=== PATIENT | male | born 1985 | race Caucasian/White ===

== ENCOUNTER 2016-07-14 20:37 | Emergency (ER) | payer OTHER ==
[~2016-07-14 20:37] MED LIST: BACTRIM DS TABL1 TAB PO; NO MEDS; NORCO 5/325 TAB1 TAB PO
[2016-07-14] MEDS ORDERED: NO HOME MEDICATION XX (21:10)
[2016-07-14 21:14] LABS: URINE BILIRUBIN NEGATIVE (NEG); URINE BLOOD LARGE (NEG); URINE GLUCOSE (UA) NEGATIVE (NEG); URINE KETONE NEGATIVE (NEG); URINE LEUKOCYTE ESTERASE POSITIVE (NEG); URINE NITRITE NEGATIVE (NEG); URINE PROTEIN SMALL (NEG); URINE SPECIFIC GRAVITY 1.005 (1.003-1.030)
[2016-07-14 21:16] LABS: URINE APPEARANCE HAZY; URINE COLOR PALE YELLOW
[2016-07-14 21:31] LABS: URINE RBC 200-250 /[HPF] (0-5)
[2016-07-14 21:32] LABS: URINE EPITHELIAL CELLS 0-1 /[HPF] (0-10); URINE WBC 30-40 /[HPF] (0-5)
[2016-07-14 22:14] LABS: BASO % 0.1 % (0-2); EOS % 0.8 % (0-7); EOSINOPHIL ABSOLUTE COUNT 0.1 tho/cmm (0.0-0.7); HCT-HEMATOCRIT 47.7 % (36.0-53.5); HGB-HEMOGLOBIN 16.7 gm/dl (13.5-17.0); IMMATURE GRANULOCYTES ABSOLUTE 0.02 tho/cmm (0-0.03); IMMATURE GRANULOCYTES PERCENT 0.2 % (0-0.3); LYMPH % 14.5 % (20-45); LYMPH ABSOLUTE COUNT 1.7 tho/cmm (0.8-4.5); MCH (MEAN CORPUSCULAR HGB) 28.5 pg (28.0-32.0); MCV (MEAN CELL VOLUME) 81.5 fl (82.0-96.0); MEAN PLATELET VOLUME 9.2 cmc (9.4-12.4); MONO % 8.5 % (0-12); NEUTROPHIL ABSOLUTE COUNT 9.1 tho/cmm (1.6-8.0); NEUTROPHIL-AUTOMATED 9.1 tho/cmm (1.6-8.0); NEUTROPHILS % 75.9 % (40-80); PLATELET COUNT 239 tho/cmm (150-450); RED BLOOD COUNT 5.85 mil/cmm (4.40-5.70); RED CELL DISTRIBUTION WIDTH 12.6 % (12.4-16.4)
[2016-07-14 22:23] LABS: ALB/GLOB RATIO 1.4 (0.8-2.0); ALBUMIN 4.5 g/dl (3.5-5.0); ALKALINE PHOSPHATASE 68 U/L (33-138); ALT/SGPT 23 U/L (12-78); ANION GAP 8 mmol/L (0-20); AST/SGOT 12 U/L (10-40); BILIRUBIN,TOTAL 0.9 mg/dl (0.0-1.5); BLOOD UREA NITROGEN 13 mg/dl (6-24); CALCIUM 9.1 mg/dl (8.5-10.5); CARBON DIOXIDE-VENOUS 33 mmol/L (22-32); CHLORIDE 102 mmol/l (96-110); CREATININE 1.11 mg/dl (0.60-1.30); GLUCOSE 102 mg/dL (70-110); POTASSIUM 3.9 mmol/L (3.7-5.1); SODIUM 139 mmol/L (135-145); eGFR VALUE FOR BLACK >90 mL/Min
[2016-07-14] MEDS ORDERED: ZOFRAN4 M2 PO (23:24)
[2016-07-14] MEDS ORDERED: FLAGYL500 M1 PO (23:24)
[2016-07-14] MEDS ORDERED: NORCO 5-325 TA1 EACH PO (23:24)
[2016-07-14] MEDS ORDERED: CIPRO500 M2 PO (23:24)
== END 2016-07-14 23:30 ==
LOC: EDMED 20:37
PROVIDERS: Emergency Medicine; Family Medicine
DX: N39.0 Urinary tract infection, site not specified (principal); R31.9 Hematuria, unspecified; K57.92 Diverticulitis of intestine, part unspecified, without perforation or abscess without bleeding; Z87.442 Personal history of urinary calculi; Z98.52 Vasectomy status; Z98.890 Other specified postprocedural states
CPT/HCPCS: J2270; J2405; J7030